=== PATIENT | female | born 1995 | race Caucasian/White ===

== ENCOUNTER 2019-05-26 16:48 | Emergency (ER) | payer BC, OTHER ==
[~2019-05-26] VITALS: Ht 162.6 cm; Wt 57.2 kg
[2019-05-26 21:52] VITALS: BP 120/74
== END 2019-05-26 21:54 | disposition home or self-care (01) ==
LOC: ED 21:27
DX: I47.1 Supraventricular tachycardia (principal)
CPT/HCPCS: 36415; 71046; 80048; 82040; 84439; 84443; 85025; 93005; 99284